=== PATIENT | male | born 1990 ===

== ENCOUNTER 2022-08-24 18:13 | Outpatient (REF) | payer MEDICAID, SELFPAY | END 2022-08-24 18:14 | disposition home or self-care (01) | LOC: LBN 18:13 | PROVIDERS: Visit Provider Physician Assistant Medical | DX: J02.9 Acute pharyngitis, unspecified (principal) | CPT/HCPCS: 87070 ==

== ENCOUNTER → 2023-04-17 01:22 | Outpatient (CLI) | payer MEDICAID, SELFPAY ==
--- NOTE | 2023-04-17 09:45 | DI.RAD_ITS ---
Exam(s) XR RIBS BI INCLUDE CHEST EXAM: XR RIBS BI INCLUDE CHEST CLINICAL HISTORY: CHEST PAIN, R07.89; PALPITATIONS, R00.2; ABNL FINDINGS ON MED EXAM, Z00.01 TECHNIQUE: 2D digital imaging was performed. COMPARISON: No exams were available for comparison FINDINGS: RIBS bilateral- 8 VIEWS There are no obvious acute rib fractures evident. No lytic rib lesions identified. CXR- 2 VIEWS: No lung contusion or pneumothorax. There is no pleural effusion evident. Heart size is normal and there is no significant mediastinal widening. IMPRESSION: 1. No obvious rib fractures evident. Also no significant rib lesions. 2. Lungs are clear. Acute pulmonary findings. Normal heart size. DATA REPOSITORY: RADIATION DOSE DELIVERED:
== END ==
PROVIDERS: Visit Provider Naturopath
DX: R07.89 Other chest pain (principal); R00.2 Palpitations; Z00.01 Encounter for general adult medical examination with abnormal findings
CPT/HCPCS: 71046; 71110

== ENCOUNTER 2023-04-17 02:27 | Outpatient (CLI) | payer MEDICAID, SELFPAY ==
[2023-04-17 10:08] LABS: Abs Immature Grans 0.01 10^3/uL (0.0-0.06); Absolute Basophil Count 0.02 10^3/uL (0.0-0.2); Absolute Eosinophil Count 0.28 10^3/uL (0.0-0.7); Absolute Lymphocyte Count 2.43 10^3/uL (1.2-3.4); Absolute Neutrophil Count 2.06 10^3/uL (1.2-6.7); Basophils % 0.4; Eosinophils % 5.4; HCT 48.4 % (40.0-50.0); HGB 17.3 g/dL (13.5-17.5); Immature Grans % 0.2; Lymphocytes % 46.7; MCH 30.4 pg (27.0-33.0); MCHC 35.7 % (32.0-36.0); MCV 85 fL (80-95); MPV 9.9 fL (8.0-11.0); Monocytes % 7.7; Neutrophils % 39.6; Platelet Count 231 10^3/uL (130-400); RDW 12.1 % (11.8-14.1); RDW-SD 37.2 fL
[2023-04-17 11:11] LABS: ALT 39 U/L (16-63); AST 23 U/L (15-37); Alkaline Phosphatase 77 U/L (46-116); Anion Gap 6.8 mmol/L (3-11); BUN 12 mg/dL (7-18); Bilirubin, Total 0.7 mg/dL (0.2-1.0); CO2 28.2 mmol/L (21.0-32.0); CREATININE 0.8 mg/dL (0.70-1.30); Calculated LDL 142 mg/dL (<100); Chloride 104 mmol/L (98-107); Cholesterol 217 mg/dL (<200); Estimated GFR 119.84 (mL/min/1.73m2); Folate 8.5 ng/mL (8.6-20.0); Glucose 89 mg/dL (74-106); HDL Cholesterol 68 mg/dL (40-60); Potassium 4.1 mmol/L (3.5-5.1); Sodium 139 mmol/L (136-145); Total Protein 7.7 g/dL (6.4-8.2); Triglyceride 38 mg/dL (<150); Vitamin B12 891 pg/mL (193-986)
[2023-04-17 11:28] LABS: Vitamin D 25 Total 35.8 ng/mL (30-100)
[2023-04-17 11:31] LABS: Hemoglobin A1C 5.1 % (<5.7)
[2023-04-17 11:38] LABS: FREE T4 1.14 ng/dL (0.76-1.46)
[2023-04-17 17:31] LABS: T3,Free 4.6 pg/mL (2.8-5.3)
[2023-04-18 13:46] LABS: ANA Interpretation Negative (Negative)
[2023-04-18 23:35] LABS: Arsenic 2 ng/mL (<13); Cadmium 0.3 ng/mL (<5.0); Health Care Provider State Vermont; Mercury <1 ng/mL (<10); Patient State Vermont; Venous/Capillary Venous
== END 2023-04-17 02:28 | disposition home or self-care (01) ==
LOC: LBO 02:27
PROVIDERS: Visit Provider Naturopath
DX: R00.2 Palpitations (principal); Z00.01 Encounter for general adult medical examination with abnormal findings
CPT/HCPCS: 36415; 80053; 80061; 82175; 82300; 82306; 83655; 83825; 82607; 82746; 83036; 84439; 84481; 85025; 86038

== ENCOUNTER → 2023-06-21 02:05 | Outpatient (CLI) | payer MEDICAID, SELFPAY ==
--- NOTE | 2023-06-21 09:29 | DI.CT_ITS ---
Exam(s) CT CHEST WO EXAM: CT CHEST WO CLINICAL HISTORY: OTHER CHEST PAIN,R07.89,PALPITATIONS,R00.2. TECHNIQUE: Imaging protocol: Axial computed tomography images were obtained and coronal and sagittal reformatted images were created and reviewed. COMPARISON: CR XR RIBS BI INCLUDE CHEST from 04/17/2023 FINDINGS: Tracheobronchial tree: Patent where visualized. Pulmonary parenchyma: No consolidation or dominant measurable mass. No architectural distortion. Mediastinum and Delfina: No dominant adenopathy or fluid collection. The esophagus is unremarkable. Thyroid gland: Unremarkable. Pleura: No effusion or pneumothorax. Heart: The heart is not dilated. No coronary artery calcifications are seen. No pericardial effusion. Aorta: Thoracic aorta non-dilated. Upper abdomen: Unremarkable. Lymph nodes: Within normal limits. Soft tissues: Unremarkable. Bones:Within normal limits for the patient's age. IMPRESSION: No acute pulmonary process. RADIATION DOSE DELIVERED: Total DLP Total DLP DATA REPOSITORY: All CT scans at this facility are submitted to the National Radiology Data Registry (NRDR) Dose Index Registry (DIR) with the [employer] ([employer]). RADIATION OPTIMIZATION: All CT scans at this facility use at least one of these dose optimization te chniques: automated exposure control; mA and/or kV adjustment per patient size (includes targeted exa ms where dose is matched to clinical indication); or iterative reconstruction.
== END ==
PROVIDERS: Visit Provider Naturopath
DX: R07.9 Chest pain, unspecified (principal); R00.2 Palpitations
CPT/HCPCS: 71250